=== PATIENT | male | born 1975 | race Caucasian/White ===

== ENCOUNTER 2017-04-03 13:55 | Emergency (ER) | payer MEDICAID ==
[~2017-04-03] VITALS: Ht 188 cm; Wt 89.8 kg
[2017-04-03 14:05] VITALS: BP 154/85
--- NOTE | 2017-04-03 14:10 | NUR ---
Patient ambulated to bed 04.
--- NOTE | 2017-04-03 14:15 | NUR ---
PA student at bedside to evaluate patient.
[2017-04-03] MEDS ORDERED: MECLIZINE 25 MG TAB PO ONE (14:20)
--- NOTE | 2017-04-03 14:31 | NUR ---
41/M TO ED WITH C/O DIZZINESS STARTING THIS MORING WITH INTERMITTENT NAUSEA. DENIES PAIN AT THIS TIME. LUNGS CLEAR BILAT. HR EVEN AND REGULAR. AAOX4. VSS. NO SIGNS OF DISTRESS.
[2017-04-03 14:35] LABS: BASOPHILS # (AUTO) 0.2 K/uL (0.00-0.22); EOSINOPHILS # (AUTO) 0.4 K/uL (0-0.4); EOSINOPHILS % (AUTO) 5.4 % (0.0-4.0); HEMATOCRIT 42.7 % (36-52); HEMOGLOBIN 14.7 g/dL (12.0-18.0); LYMPHOCYTES # (AUTO) 2.5 K/uL (2.0-11.5); LYMPHOCYTES % (AUTO) 37.9 % (20.5-51.1); MEAN CORPUSCULAR HEMOGLOBIN 30 pg (27-31); MEAN CORPUSCULAR HGB CONC 34 g/dL (33-37); MEAN CORPUSCULAR VOLUME 87 fL (80-94); MONOCYTES # (AUTO) 0.4 K/uL (0.8-1.0); MONOCYTES % (AUTO) 6.2 % (1.7-9.3); PLATELET COUNT (AUTO) 243 K/uL (140-450); RED BLOOD CELL COUNT(AUTO) 4.91 MIL/uL (4.20-6.10); RED CELL DISTRIBUTION WIDTH 12.4 % (11.6-13.7); WHITE BLOOD COUNT (AUTO) 6.5 K/uL (4.8-10.8)
[2017-04-03 14:49] LABS: ANION GAP 12.7 (8-16); CALCIUM 8.5 mg/dL (8.5-10.1); CARBON DIOXIDE 27.1 mmol/L (21-32); POTASSIUM 3.8 mmol/L (3.5-5.1)
[2017-04-03 14:58] LABS: PARTIAL THROMBOPLASTIN TIME 26.1 secs (22-35.6); PROTHROMBIN TIME 9.8 secs (10.8-13.4)
[2017-04-03 15:10] LABS: ALBUMIN 3.9 g/dL (3.4-5.0); TOTAL BILIRUBIN 0.4 mg/dL (0.0-1.0); TOTAL PROTEIN, SERUM 7.2 g/dL (6.4-8.2)
[2017-04-03 15:27] VITALS: BP 154/85
--- NOTE | 2017-04-03 15:27 | NUR ---
Patient discharged with v/s stable. Written and verbal after care instructions given and explained. Patient alert, oriented and verbalized understanding of instructions. Ambulatory with steady gait. All questions addressed prior to discharge. ID band removed. Patient advised to follow up with PMD. Rx of ANTIVERT given. Patient educated on indication of medication including possible reaction and side effects. Opportunity to ask questions provided and answered.
== END 2017-04-03 15:27 | disposition home or self-care (01) ==
LOC: MED 13:55
DX: R42 Dizziness and giddiness (principal)
CPT/HCPCS: 36415; 80053; 82553; 83880; 84484; 85025; 85610; 85730; 93005; 99285; J8597